=== PATIENT | female | born 1990 | race Hispanic/Latino ===

== ENCOUNTER 2016-09-13 08:55 | Inpatient (IN) | payer BC, MEDICAID ==
--- NOTE | 2016-09-13 09:21 | History and Physical Report ---
History of Present Illness Date of examination: 09/13/16 Date of admission: 09/13/16 08:55 Chief complaint: I'm here for my History of present illness: Patient is a 25 year old who presents for elective repeat at 39 weeks. She has had an uncomplicated course. Past History Past Medical History: other (obesity) Past Surgical History: section Family/Genetic History: none Social history: , smoking - Obstetrical History Expected Date of Delivery: 09/20/16 Actual Gestation: 39 Week(s) 0 Day(s) : 2 Para: 1 Number of Living Children: 1 Medications and Allergies Allergies Allergy/AdvReac Type Severity Reaction Status Date / Time No Known Allergies Allergy Verified 09/13/16 09:17 Active Meds: Active Medications Citric Acid/Sodium Citrate (Bicitra) 30 ml PO ONCE ONE Stop: 09/13/16 09:05 Famotidine (Pepcid) 20 mg IV ONCE ONE Stop: 09/13/16 09:05 Cefazolin Sodium (Ancef/Sterile Water 2 Gm/20 Ml) 2 gm in 20 mls @ 80 mls/hr IV PREOP NR PRN Reason: Protocol Lactated Ringer's (Lactated Ringers) 1,000 mls @ 2,250 mls/hr IV PREOP JAIME Stop: 09/14/16 10:27 Oxytocin/Sodium Chloride (Pitocin/Ns 20 Unit/1000ml Drip) 20 units in 1,000 mls @ 0 mls/hr IV TITR JAIME PRN Reason: As Directed Metoclopramide HCl (Reglan) 10 mg IV ONCE ONE Stop: 09/13/16 09:05 Review of Systems All systems: negative Genitourinary: pelvic pain Rectal Exam: deferred Psychiatric: depression - Physical Exam Breasts: Cardiovascular: Regular rate, Normal S1, Normal S2 Lungs: Positive: Clear to auscultation, Normal air movement Abdomen: Positive: normal appearance, soft, normal bowel sounds. Negative: distention, tenderness Vulva: both: normal Vagina: Positive: normal moisture. Negative: discharge Cervix: Negative: lesion, discharge Uterus: Positive: normal size, normal contour Adnexa: both: normal Anus/Rectum: Positive: normal perianal skin, heme negative. Negative: rectal mass, hemorrhoids Extremities: Deep Tendon Reflex Grade: Normal +2 - Obstetrical FHR: auscultation normal Cervical Dilatation: 1 Cervical Effacement Percentage: 50 Uterine Contraction Pattern: Regular Uterine Contraction Intensity: Moderate Results All other labs normal. Assessment and Plan Patient is a 25v year old who presents for elective repeat . Consents signed and placed on chart. Will proceed with surgery
[2016-09-13] MEDS ORDERED: ANCEF/STERILE WATER 2 GM/20 ML 2 GM/20 ML SYRINGE IV NR (10:00)
[2016-09-13] MEDS ORDERED: PEPCID IV NR (10:00)
[2016-09-13] MEDS ORDERED: REGLAN IV NR (10:00)
[2016-09-13] MEDS ORDERED: BICITRA PO NR (10:00)
[2016-09-13] MEDS ORDERED: PITOCin/NS 20 UNIT/1000ML DRIP 20 UNITS/1,000 ML BAG IV SCH ×2 (10:00→14:00)
[2016-09-13] MEDS: LACTATED RINGERS 1,000 ML IV SCH ×2 (10:10→10:50)
[2016-09-13 10:32] LABS: Basophils % (Auto) 0.7 % (0.0-1.8); Eosinophils % (Auto) 0.9 % (0.0-4.3); Hematocrit 36.9 % (30.3-42.9); Mean Corpuscular HGB Conc 33 % (30-34); Mean Corpuscular Hemoglobin 26 pg (28-32); Mean Corpuscular Volume 81 fl (79-97); Platelet Count 296 K/mm3 (140-440); Red Blood Count 4.56 M/mm3 (3.65-5.03); Red Cell Distribution Width 14.3 % (13.2-15.2); White Blood Count 13.7 K/mm3 (4.5-11.0)
[2016-09-13] MEDS ORDERED: WATER FOR IRRIG STERILE IR ONE (11:35)
[2016-09-13] MEDS ORDERED: NACL 0.9% IR ONE (11:35)
[2016-09-13] MEDS ORDERED: MORPHINE ONE (11:38)
[2016-09-13] MEDS ORDERED: ANCEF/STERILE WATER 2 GM/20 ML IV ONE (11:52)
[2016-09-13] MEDS ORDERED: NACL 0.9% 1000 ML 1,000 ML ONE (12:23)
--- NOTE | 2016-09-13 12:26 | Anesthesia Consultation ---
Anesthesia Consult and Med Hx Date of service: 09/13/16 - Airway Anesthetic Teeth Evaluation: Good ROM Head & Neck: Adequate Mental/Hyoid Distance: Adequate Mallampati Class: Class II Intubation Access Assessment: Probably Good - Pulmonary Exam CTA: Yes - Cardiac Exam Cardiac Exam: RRR - Pre-Operative Health Status ASA Pre-Surgery Classification: ASA3 Proposed Anesthetic Plan: General - Pulmonary Hx Asthma: No COPD: No Hx Pneumonia: No - Cardiovascular System Hx Hypertension: No - Central Nervous System Hx Seizures: No Hx Psychiatric Problems: No - Endocrine Hx Renal Disease: No Hx End Stage Renal Disease: No Hx Hypothyroidism: No Hx Hyperthyroidism: No - Hematic Hx Anemia: No Hx Sickle Cell Disease: No - Other Systems Hx Alcohol Use: No Hx Obesity: Yes (MORBID) - Additional Comments Anesthesia Medical History Comments: +IUP
--- NOTE | 2016-09-13 12:26 | Anesthesia Day of Surgery ---
Anesthesia Day of Surgery - Day of Surgery Patient Examined: Yes Patient H&P Reviewed: Yes Patient is NPO: Yes
[2016-09-13] MEDS ORDERED: ZOFRAN IV PRN ×2 (12:27→13:53)
--- NOTE | 2016-09-13 12:27 | Post Anesthesia Evaluation ---
- Post Anesthesia Evaluation Patient Participated: Yes Airway Patent: Yes Stable Respiratory Function: Yes Nausea/Vomiting: No Temp > 96.8F: Yes Pain Manageable: Yes Adequeate Hydration: Yes Anesthesia Complications: No Block Receding Appropriately: Yes Patient on Ventilator: No
[2016-09-13] MEDS ORDERED: NEO SYNEPHRINE/NS Syringe(OR USE) IV ONE (12:30)
[2016-09-13] MEDS ORDERED: SODIUM CHLORIDE FLUSH SYRINGE 10 ML IV SCH ×2 (13:00→14:00)
[2016-09-13] MEDS ORDERED: TORADOL IV PRN (13:00)
[2016-09-13] MEDS ORDERED: BENADRYL IV PRN (13:00)
[2016-09-13] MEDS ORDERED: MORPHINE IV PRN ×2 (13:00)
[2016-09-13] MEDS ORDERED: NARCAN 0.4 MG/1 ML IV PRN ×2 (13:00→13:53)
[2016-09-13] MEDS ORDERED: ZOFRAN ONE (13:18)
[2016-09-13] MEDS ORDERED: TUCKS PAD TP PRN (13:53)
[2016-09-13] MEDS ORDERED: TYLENOL PO PRN (13:53)
[2016-09-13] MEDS ORDERED: MYLICON PO PRN (13:53)
[2016-09-13] MEDS ORDERED: LANSINOH TP PRN (13:53)
[2016-09-13] MEDS ORDERED: D5LR 1,000 ML IV SCH (14:00)
--- NOTE | 2016-09-13 15:10 | Procedure Note ---
OB Delivery Note - Delivery Date of Delivery: 09/13/16 Surgeon: ABIMAEL OBREGON Estimated blood loss: other (800) - Section Preop diagnosis: repeat Postop diagnosis: same (with elective sterilization) section procedure: repeat low transverse, bilateral tubal ligation Disposition: PACU Complications: none Narrative: see op note - A at 1 minute: 9 at 5 minutes: 9 Infant Gender: Male (9 pounds 9 ounces)
[2016-09-13] MEDS: MORPHINE IV PRN ×2 (15:26→20:10)
--- NOTE | 2016-09-13 20:20 | Operative Report ---
PREOPERATIVE DIAGNOSES: 1. Intrauterine at 39 weeks. 2. Previous section. 3. Undesired fertility. POSTOPERATIVE DIAGNOSES: 1. Intrauterine at 39 weeks. 2. Previous section. 3. Undesired fertility. PROCEDURE: 1. Repeat low transverse section. 2. Bilateral tubal ligation. SURGEON: Gisselle Marroquin MD ANESTHESIA: Spinal. ESTIMATED BLOOD LOSS: 800 mL. IV FLUIDS: 1000 mL. URINE OUTPUT: 200 mL clear at the end of the procedure. COMPLICATIONS: None. SPECIMENS: Portion of right and left fallopian tubes. FINDINGS: Viable male , weight 9 pounds 9 ounces, 4334 g with 9 and 9. DESCRIPTION OF PROCEDURE: The patient was taken to the OR with IV running in place. She was properly identified as herself. She was given spinal anesthesia without difficulty. She was then prepped and draped in normal sterile fashion and placed in dorsal supine position with a leftward tilt. A Rushing catheter was inserted. Once the patient was draped the Allis test confirmed adequate anesthesia. A Pfannenstiel incision was then made using the scalpel and carried to the underlying fascia using a scalpel and a Bovie. Fascia was identified, incised in the midline. The incision was extended bilaterally using the curved [place] scissors. The fascia was then dissected from the underlying rectus muscles in a series of sharp and blunt dissection using the scissors and scalpel. This was done superiorly and inferiorly. Muscles were in the midline bluntly using the surgeon's fingers. The peritoneal cavity was entered into bluntly using the surgeon's fingers. Peritoneal incision was extended superiorly and inferiorly. Bladder blade was then placed into the incision to protect the bladder. The bladder flap was then created. The hysterotomy incision was then made using the scalpel and carried to the level of the amniotic sac. The incision was then extended bilaterally. The sac was ruptured for clear fluid and the was delivered atraumatically. Once the head of the infant was out and he was suctioned, he began to cry and the rest of the body was delivered atraumatically. Cord was clamped and cut and he was handed to the awaiting NICU personnel. The placenta was then delivered manually using the surgeon's hands. The uterus was then exteriorized and cleared of all clots and debris. Uterus was then closed in a running locked fashion using 0 Vicryl. This was done in 2 layers. Following this, attention was turned to the patient's fallopian tubes. The tubes were identified and tented up with a [place] clamp on each side and ligated bilaterally and each portion of the tube was handed off. The tubal ligation was in the [place] style. There was excellent hemostasis noted at the end of this portion of the procedure. At this point in time, the abdomen was copiously irrigated with warm normal saline until there was clear fluid noted. At this point, the uterus was replaced into the abdominal cavity, again there was excellent hemostasis. The muscle reapproximated in the midline using sutures of 0 Vicryl. The fascia was then closed in a running fashion using 0 Vicryl. The subcutaneous fat was ____ with 3 retention sutures and the skin was closed with joyce. The sponge, lap, needle, and instrument counts were correct x2. She tolerated the procedure well and taken to recovery in stable condition. JOB# [id number] JOSE LUIS/SOWMYA
[2016-09-13] MEDS: PERCOCET 5/325 PO PRN (22:45)
[2016-09-14 02:32] LABS: Hematocrit 31.2 % (30.3-42.9); Hemoglobin 9.9 gm/dl (10.1-14.3)
[2016-09-14] MEDS: PERCOCET 5/325 PO PRN ×5 (03:16→20:13)
[2016-09-14] MEDS: MOTRIN PO PRN ×2 (08:28→16:08)
[2016-09-14] MEDS ORDERED: FEOSOL PO SCH (10:00)
[2016-09-14] MEDS ORDERED: PRENATAL VITAMIN PO SCH (10:00)
--- NOTE | 2016-09-14 14:43 | Progress Note ---
Subjective Date of service: 09/14/16 Interval history: 1st POD after Patient is in the bed, relatively comfortable. Pain is well controlled with pain meds. No residual neurological deficit. Pruritus is controlled with Benadryl. No anesthesia complications Objective - Constitutional Vitals: Vital Signs - 12hr 09/14/16 09/14/16 09/14/16 04:32 08:28 09:20 Temperature 98.7 F 98 F Pulse Rate [ 87 90 Right Radial] Respiratory 20 18 18 Rate Blood Pressure 113/66 120/70 [Right Arm] 09/14/16 12:25 Temperature Pulse Rate [ Right Radial] Respiratory 20 Rate Blood Pressure [Right Arm] - Labs CBC & Chem 7: 09/14/16 01:18 Labs: Abnormal lab results 09/14/16 Range/Units 01:18 Hgb 9.9 L (10.1-14.3) gm/dl
--- NOTE | 2016-09-14 17:28 | Progress Note ---
Assessment and Plan Patient is a 25v year old who presents for elective repeat . Consents signed and placed on chart. Will proceed with surgery Subjective - Subjective Date of service: 09/14/16 Interval history: Patient is a 25 year old who presents for elective repeat at 39 weeks. She has had an uncomplicated course. Patient reports: appetite normal, voiding normally, pain well controlled, ambulating normally [place]: doing well Objective - Vital Signs Latest vital signs: Vital Signs Temp Pulse Resp BP 09/14/16 16:08 20 09/14/16 16:07 20 09/14/16 12:55 97.5 F L 102 H 20 109/70 09/14/16 12:25 20 09/14/16 09:20 98 F 90 18 120/70 09/14/16 08:28 18 09/14/16 04:32 98.7 F 87 20 113/66 09/14/16 01:40 98.1 F 89 18 115/64 09/13/16 21:10 97.5 F L 77 20 119/67 Intake and Output 09/14/16 09/14/16 09/14/16 06:59 14:59 22:59 Intake Total 480 840 Output Total 1400 Balance -920 840 Intake: Oral 240 840 Intake, Free Water 240 Output: Urine 1400 Indwelling Catheter 1000 Void 400 Other: Total, Intake Amount 240 480 Total, Output Amount 400 # Voids Void 1 - Exam Lungs: Present: Clear to auscultation, Normal air movement Abdomen: Present: normal appearance, soft, normal bowel sounds - Labs Labs: Abnormal lab results 09/14/16 Range/Units 01:18 Hgb 9.9 L (10.1-14.3) gm/dl
[2016-09-15] MEDS: PERCOCET 5/325 PO PRN ×2 (00:56→09:27)
[2016-09-15] MEDS: MOTRIN PO PRN ×2 (00:57→09:27)
--- NOTE | 2016-09-15 08:49 | Discharge Summary ---
Providers - Providers Date of Admission: 09/13/16 08:55 Date of discharge: 09/15/16 Attending physician: ABIMAEL OBREGON Primary care physician: ABIMAEL OBREGON Hospitalization Reason for admission: section Delivery: Procedure: bilateral tubal ligation, repeat low transverse Procedure details: see op note Incision: normal, dry, intact complications: none Discharge diagnosis: IUP at term delivered baby: male Hospital course: unremarkable Condition at discharge: Good Disposition: DISCHARGED TO HOME OR SELFCARE Plan - Discharge Medications Prescriptions: Ibuprofen [Motrin] 800 mg PO Q8HR PRN #40 tablet PRN Reason: Pain Oxycodone HCl/Acetaminophen [Percocet 7.5/325 mg] 1 each PO Q6HR PRN #40 tablet PRN Reason: Pain Simethicone 180 mg PO DAILY #30 capsule - Provider Discharge Summary Activity: routine, no sex for 6 weeks, no heavy lifting 4 weeks, no strenuous exercise Diet: routine Instructions: routine Additional instructions: [] Smoking cessation referral if applicable(refer to patient education folder for contact #) [] Refer to [facility] Booklet Call your doctor immediately for: * Fever > 100.5 * Heavy vaginal bleeding ( >1 pad per hour) * Severe persistent headache * Shortness of breath * Reddened, hot, painful area to leg or breast * Drainage or odor from incision. * Keep incision clean and dry at all times and follow doctor's instructions regarding bathing/showering - Follow up plan Follow up: ABIMAEL OBREGON MD [Primary Care Provider] - 7 Days
[2016-09-15 19:18] VITALS: BP 132/74
== END 2016-09-15 14:55 | disposition home or self-care (01) | DRG 765 ==
LOC: APU 08:55 → OB 15:06
PROVIDERS: ADMIT Obstetrics & Gynecology; ATTEND Obstetrics & Gynecology
PROC: 10D00Z1 Extraction of Products of Conception, Low, Open Approach (ICD-10-PCS; principal; 2016-09-13)
PROC: 0UB70ZZ Excision of Bilateral Fallopian Tubes, Open Approach (ICD-10-PCS; principal; 2016-09-13)
DX: O34.211 Maternal care for low transverse scar from previous cesarean delivery (principal); Z68.41 Body mass index [BMI] 40.0-44.9, adult; Z3A.39 39 weeks gestation of pregnancy; Z37.0 Single live birth; O99.214 Obesity complicating childbirth; E66.01 Morbid (severe) obesity due to excess calories; Z30.2 Encounter for sterilization
CPT/HCPCS: 36415; 85014; 85018; 85025; 86850; 86900; 86901; 88302; 99211; G0463; J0690; J1200; J2270; J2370; J2405; J2590; J2765; J7030; J7120; J7121